=== PATIENT | female | born 1980 | race Caucasian/White ===

== ENCOUNTER 2021-06-29 16:48 | Emergency (ER) | payer OTHER ==
[2021-06-29] MEDS ORDERED: KETOROLAC 15 MG/ML 1 ML VIAL IVP STA (17:01)
[2021-06-29 17:12] VITALS: RESP 20
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
--- NOTE | 2021-06-29 20:03 | XR ---
EXAMINATION TYPE: XR lumbosacral spine min 4V DATE OF EXAM: 06/29/2021 COMPARISON: NONE HISTORY: Back pain TECHNIQUE: 5 views FINDINGS: Lumbar vertebra have normal alignment. Posterior elements are intact. There are 6 lumbar ty pe vertebra. There is anterior wedging of L1 and L2 vertebra. There is up to 25% wedging of L2. There is 10% wedging of L1. Sacroiliac joints are intact. Posterior elements are intact. IMPRESSION: Mild compression fractures of L1 and L2 which are of uncertain age. These could be acute.
--- NOTE | 2021-06-29 20:04 | XR ---
EXAMINATION TYPE: XR thoracic spine complete DATE OF EXAM: 06/29/2021 COMPARISON: NONE HISTORY: Back pain TECHNIQUE: 3 views FINDINGS: Thoracic vertebra have normal alignment. Posterior elements are intact. There is no paraspi nal mass. There is no compression fracture. IMPRESSION: Negative thoracic spine exam. No fracture.
[2021-06-29] MEDS ORDERED: CYCLOBENZAPRINE 10 MG TAB PO STA (20:40)
[2021-06-29] MEDS ORDERED: IBUPROFEN 800 MG TAB PO STA (20:41)
[2021-06-29 21:16] VITALS: BP 133/70; PULSE 82; TEMP 97.6
== END 2021-06-29 21:15 | disposition home or self-care (01) ==
LOC: EC 16:48
DX: S16.1XXA Strain of muscle, fascia and tendon at neck level, initial encounter (principal); S39.012A Strain of muscle, fascia and tendon of lower back, initial encounter; I10 Essential (primary) hypertension; V49.50XA Passenger injured in collision with unspecified motor vehicles in traffic accident, initial encounter; Y92.410 Unspecified street and highway as the place of occurrence of the external cause
CPT/HCPCS: 72072; 72110; 73060; 72125; 70450; 96374; 99284; J1885